=== PATIENT | female | born 1950 | race Two or more races ===

== ENCOUNTER 2024-02-04 08:17 | Inpatient (IN) | payer MEDICARE, OTHER ==
[~2024-02-04] VITALS: Ht 152.4 cm; Wt 66.4 kg
[2024-02-04] MEDS: ACETAMINOPHEN IV 1000 MG/100ML (10MG/ML) IV ONE (09:15)
[2024-02-04] MEDS: PREGABALIN CAPSULE 75 MG CAP PO ONE (09:15)
[2024-02-04] MEDS: PREGABALIN CAPSULE 75 MG CAP ONE (09:15)
[2024-02-04] MEDS: CELECOXIB 100 MG CAP ONE (09:15)
[2024-02-04] MEDS: CELECOXIB 100 MG CAP PO ONE (09:15)
[2024-02-04] MEDS: BUPIVACAINE W/ EPINEPH 0.5% INJ 50ML MDV IJ ONE (11:12)
[2024-02-04] MEDS: TRANEXAMIC ACID 20 ML ONE (11:12)
[2024-02-04] MEDS: VANCOMYCIN HCL 1000 MG VL ONE (11:31)
[2024-02-04] MEDS: TETRACAINE 1% INJ 2 ML VIAL IJ ONE (11:35)
[2024-02-04] MEDS ORDERED: fentaNYL CITRATE 100 MCG/2 ML VL ONE (11:37)
[2024-02-04] MEDS ORDERED: MIDAZOLAM HCL 2MG/2ML 2ml VIAL (1mg/ml) ONE (11:37)
[2024-02-04] MEDS ORDERED: ONDANSETRON HCL 4 MG/2 ML VIAL IV PRN (12:00)
[2024-02-04] MEDS ORDERED: MORPHINE SULFATE INJ 2 MG/ml SYRG IV PRN (12:00)
[2024-02-04] MEDS ORDERED: NITROGLYCERIN 0.4 MG SL TAB SL PRN (12:00)
[2024-02-04] MEDS ORDERED: HYDROmorphone HCL 2 MG/ML VL/or syr IV PRN ×3 (12:00→14:00)
[2024-02-04] MEDS ORDERED: ceFAZolin 1GM/50ML 50 ML IV SCH (12:00)
[2024-02-04] MEDS: KETOROLAC TROMETH 30 MG/ML 1ML VIAL ONE (12:26)
[2024-02-04] MEDS: MORPHINE SULF PF 5 MG/10 ML VIAL ONE (12:28)
[2024-02-04] MEDS: ONDANSETRON HCL 4 MG/2 ML VIAL IV ONE (13:00)
[2024-02-04 13:28] VITALS: O2SAT 100
[2024-02-04] MEDS: LACTATED RINGER'S 1,000 ML IV SCH (13:30)
[2024-02-04] MEDS ORDERED: PROPOFOL 10 MG/ML 20 ML IV ONE (13:56)
[2024-02-04] MEDS: SODIUM CHLOR 0.9% PF (SALINE LOCK) 10ML VIAL/SYR IV SCH (14:00)
[2024-02-04] MEDS: HYDROmorphone HCL 2 MG/ML VL/or syr IV PRN (14:16)
[2024-02-04] MEDS ORDERED: TOLT2CAP PO (14:22)
[2024-02-04] MEDS ORDERED: SIMV20TA20 PO (14:32)
[2024-02-04] MEDS ORDERED: PANT40TA2 PO (14:32)
[2024-02-04] MEDS ORDERED: TRIATAB3 PO (14:32)
[2024-02-04] MEDS ORDERED: ASPI1TAB20 PO (14:32)
[2024-02-04] MEDS ORDERED: DIVA250T12 PO (14:32)
[2024-02-04] MEDS ORDERED: METO25TA5 PO ×2 (14:32)
[2024-02-04] MEDS ORDERED: DILT60TA PO (14:32)
[2024-02-04] MEDS ORDERED: KETOROLAC TROMETH 30 MG/ML 1ML VIAL ONE (14:54)
[2024-02-04 17:52] VITALS: BP 144/56; PULSE 70; RESP 20; TEMP 97.6; O2SAT 95
[2024-02-04 18:00] VITALS: BP 144/56; PULSE 70; RESP 20; TEMP 97.6; O2SAT 95
[2024-02-04] MEDS: ceFAZolin 1GM/50ML 50 ML IV SCH (18:52)
[2024-02-04 20:00] VITALS: PULSE 74; RESP 17; O2SAT 94
[2024-02-04 21:16] VITALS: BP 125/50; PULSE 74; RESP 19; TEMP 97.3; O2SAT 100
[2024-02-05] VITALS (11 sets, daily range): BP systolic 92–118; BP diastolic 33–54; PULSE 89–121; RESP 17–21; TEMP 98.1–99.9; O2SAT 92–97
[2024-02-05] MEDS: HYDROcodone-ACET 5/325MG TAB PO PRN (00:15)
[2024-02-05] MEDS: DOCUSATE SOD 100 MG CAP PO SCH (00:20)
[2024-02-05 05:14] LABS: Basophils # (auto) 0 10 ^3/uL (0-0.2); Eosinophils # (auto) 0 10 ^3/uL (0-0.8); Eosinophils % (auto) 0.2 % (0.0-7.0); Monocytes # (auto) 0.8 10 ^3/uL (0-1.3); White Blood Cell 7.4 10^3/uL (4.4-10.8)
[2024-02-05 05:21] LABS: Basophils % (auto) 0.1 % (0.0-2.0); Hematocrit 20.8 % (36.0-46.0); Lymphocytes # (auto) 0.4 10 ^3/uL (0.4-5.4); Mean Corpuscular Hemoglobin 28.2 pg (28.0-32.0); Mean Corpuscular Hgb Conc. 32.5 g/dL (32.0-36.0); Mean Corpuscular Volume 86.7 fL (80.0-100.0); Monocytes % (auto) 11.1 % (0.0-12.0); Neutrophils # (auto) 6.1 10 ^3/uL (1.6-8.6); Neutrophils % (auto) 82.6 % (37.0-80.0); Red Blood Cells 2.39 10^6/uL (4.0-5.20); Red Cell Distribution Width 15.4 % (11.8-14.3)
[2024-02-05 05:32] LABS: Alkaline Phosphatase 64 U/L (46-116); Anion Gap 2 (5-15); Blood Urea Nitrogen 14 mg/dL (9-23); Calcium 8.7 mg/dL (8.7-10.4); Carbon Dioxide 31 mmol/L (20-30); Chloride 103 mmol/L (98-107); Glucose 117 mg/dL (74-106); Potassium 4.3 mmol/L (3.5-5.1); Sodium 136 mmol/L (136-145)
[2024-02-05 05:33] LABS: Albumin 2.8 g/dL (3.2-4.8); Aspartate Aminotransferase 17 U/L (13-40); Bilirubin, Total 0.4 mg/dL (0.2-1.0); Hemoglobin 6.8 g/dL (12.2-16.2); Total Protein 5.2 g/dL (5.7-8.2)
[2024-02-05 05:49] LABS: Alanine Aminotransferase 9 U/L (7-40)
[2024-02-05] MEDS ORDERED: HYDROmorphone HCL 2 MG/ML VL/or syr IV PRN (09:45)
[2024-02-05] MEDS ORDERED: ENOXAPARIN SOD 40 MG/0.4 ML SYRINGE SC SCH (10:00)
[2024-02-05 10:07] LABS: Basophils # (auto) 0 10 ^3/uL (0-0.2); Eosinophils # (auto) 0 10 ^3/uL (0-0.8); Lymphocytes # (auto) 0.3 10 ^3/uL (0.4-5.4)
[2024-02-05 10:12] LABS: Basophils % (auto) 0.2 % (0.0-2.0); Hematocrit 19.5 % (36.0-46.0); Lymphocytes % (auto) 3.3 % (10.0-50.0); Mean Corpuscular Hemoglobin 29.8 pg (28.0-32.0); Mean Corpuscular Hgb Conc. 34.5 g/dL (32.0-36.0); Mean Corpuscular Volume 86.5 fL (80.0-100.0); Monocytes % (auto) 11.2 % (0.0-12.0); Neutrophils # (auto) 7.6 10 ^3/uL (1.6-8.6); Neutrophils % (auto) 85.3 % (37.0-80.0); Red Blood Cells 2.25 10^6/uL (4.0-5.20); Red Cell Distribution Width 15.1 % (11.8-14.3); White Blood Cell 8.9 10^3/uL (4.4-10.8)
[2024-02-05 10:14] LABS: Hemoglobin 6.7 g/dL (12.2-16.2)
[2024-02-05] MEDS: IRON SUCROSE COMPLEX 100 ML IV SCH (16:23)
[2024-02-05 16:26] LABS: Hematocrit 23.8 % (36.0-46.0); Hemoglobin 7.9 g/dL (12.2-16.2)
[2024-02-05] MEDS: ACETAMINOPHEN 325 MG TAB PO PRN (23:47)
[2024-02-06] VITALS (11 sets, daily range): BP systolic 91–147; BP diastolic 44–66; PULSE 81–120; RESP 16–20; TEMP 97.6–99.3; O2SAT 91–96
[2024-02-06 06:24] LABS: Mean Corpuscular Volume 86.2 fL (80.0-100.0); White Blood Cell 7.3 10^3/uL (4.4-10.8)
[2024-02-06 06:25] LABS: Hematocrit 22.1 % (36.0-46.0); Hemoglobin 7.4 g/dL (12.2-16.2); Mean Corpuscular Hemoglobin 28.7 pg (28.0-32.0); Mean Corpuscular Hgb Conc. 33.4 g/dL (32.0-36.0); Red Blood Cells 2.57 10^6/uL (4.0-5.20); Red Cell Distribution Width 14.9 % (11.8-14.3)
[2024-02-06 06:33] LABS: Basophils % (manual) 0 (0.0-2.0); Blast Cells 0; Metamyelocytes % 0; Myelocytes % 0; Promyelocytes % 0; Reactive Lymphocytes 0
[2024-02-06 06:44] LABS: Albumin 2.9 g/dL (3.2-4.8); Alkaline Phosphatase 75 U/L (46-116); Anion Gap 2 (5-15); Aspartate Aminotransferase 22 U/L (13-40); BUN/Creatinine Ratio 28.3 (10.0-20.0); Bilirubin, Total 0.5 mg/dL (0.2-1.0); Blood Urea Nitrogen 15 mg/dL (9-23); Calcium 8.4 mg/dL (8.5-10.1); Carbon Dioxide 30 mmol/L (20-30); Chloride 105 mmol/L (98-107); Glucose 109 mg/dL (74-106); Potassium 4.3 mmol/L (3.5-5.1); Sodium 137 mmol/L (136-145)
[2024-02-06 06:45] LABS: Total Protein 5.2 g/dL (5.7-8.2)
[2024-02-06 06:49] LABS: Alanine Aminotransferase < 9 U/L (7-40)
[2024-02-06 07:52] LABS: Band Neutrophils % (manual) 14; Eosinophils % (manual) 1 (0-7); Lymphocytes % (manual) 15 (10.0-50.0); Monocytes % (manual) 9 (0-12)
[2024-02-06 07:53] LABS: Platelet Estimate Adequate
[2024-02-06] MEDS: LACTATED RINGER'S 1,000 ML IV SCH (10:13)
[2024-02-06] MEDS: IRON SUCROSE COMPLEX 100 ML IV ONE (12:13)
[2024-02-07] VITALS (8 sets, daily range): BP systolic 113–175; BP diastolic 65–90; PULSE 91–123; RESP 17–21; TEMP 97.8–109; O2SAT 90–97
[2024-02-07 06:38] LABS: Basophils # (auto) 0 10 ^3/uL (0-0.2); Basophils % (auto) 0.2 % (0.0-2.0); Eosinophils # (auto) 0.1 10 ^3/uL (0-0.8); Neutrophils # (auto) 5.1 10 ^3/uL (1.6-8.6)
[2024-02-07 06:40] LABS: Eosinophils % (auto) 1.7 % (0.0-7.0); Hematocrit 24.8 % (36.0-46.0); Hemoglobin 8.3 g/dL (12.2-16.2); Lymphocytes # (auto) 0.7 10 ^3/uL (0.4-5.4); Lymphocytes % (auto) 9.9 % (10.0-50.0); Mean Corpuscular Hemoglobin 29.2 pg (28.0-32.0); Mean Corpuscular Hgb Conc. 33.3 g/dL (32.0-36.0); Mean Corpuscular Volume 87.6 fL (80.0-100.0); Monocytes % (auto) 15.1 % (0.0-12.0); Neutrophils % (auto) 73.1 % (37.0-80.0); Red Blood Cells 2.83 10^6/uL (4.0-5.20); Red Cell Distribution Width 15.1 % (11.8-14.3); White Blood Cell 6.9 10^3/uL (4.4-10.8)
[2024-02-07 08:58] LABS: Hepatitis B Surface Antigen Negative (Negative)
[2024-02-07 09:20] LABS: Hepatitis C Antibody Negative (Negative)
[2024-02-07] MEDS: TOLTERODINE TARTRATE 1 MG TAB PO SCH (10:50)
[2024-02-07] MEDS: METOPROLOL TARTRATE 25 MG TAB PO SCH (10:50)
[2024-02-07] MEDS: ATORVASTATIN 20 MG TAB PO SCH (21:48)
[2024-02-08 01:00] VITALS: BP 169/78; PULSE 108; RESP 20; TEMP 98.2; O2SAT 91
[2024-02-08 05:00] VITALS: BP 158/73; PULSE 97; RESP 18; TEMP 97.9; O2SAT 93
[2024-02-08 05:18] LABS: Basophils # (auto) 0 10 ^3/uL (0-0.2); Basophils % (auto) 0.2 % (0.0-2.0); Eosinophils # (auto) 0.2 10 ^3/uL (0-0.8); Eosinophils % (auto) 2.5 % (0.0-7.0); Hemoglobin 8.7 g/dL (12.2-16.2); Lymphocytes # (auto) 0.7 10 ^3/uL (0.4-5.4); Lymphocytes % (auto) 10.8 % (10.0-50.0); Mean Corpuscular Hgb Conc. 33.3 g/dL (32.0-36.0); Mean Corpuscular Volume 87.2 fL (80.0-100.0); Monocytes # (auto) 0.9 10 ^3/uL (0-1.3); Monocytes % (auto) 13.5 % (0.0-12.0); Red Blood Cells 2.99 10^6/uL (4.0-5.20); Red Cell Distribution Width 15.6 % (11.8-14.3); White Blood Cell 6.8 10^3/uL (4.4-10.8)
[2024-02-08 05:33] LABS: Calcium 9.2 mg/dL (8.7-10.4); Chloride 103 mmol/L (98-107); Potassium 3.8 mmol/L (3.5-5.1); Sodium 135 mmol/L (136-145)
[2024-02-08 05:35] LABS: Anion Gap 3 (5-15); Carbon Dioxide 29 mmol/L (20-30)
[2024-02-08 05:40] LABS: Blood Urea Nitrogen 6 mg/dL (9-23); Glucose 102 mg/dL (74-106)
[2024-02-08] MEDS: hydrALAZINE HCL 20 MG/ML VL IV PRN (06:17)
[2024-02-08 07:30] VITALS: PULSE 99
[2024-02-08 09:00] VITALS: BP 156/78; PULSE 106; RESP 18; TEMP 98.1; O2SAT 93
[2024-02-08 12:45] VITALS: BP 123/67; PULSE 95; RESP 17; TEMP 98; O2SAT 92
[2024-02-08 13:07] VITALS: BP 123/67; PULSE 95; TEMP 36.7
== END 2024-02-08 13:57 | disposition home health service (06) | DRG 470 ==
LOC: SUR 08:17 → OVERFLOW 11:50 → CENTRAL 17:00 → TELE-CENTR 02-05 10:27
PROVIDERS: ADMIT Orthopaedic Surgery Adult Reconstructive Orthopaedic Surgery; ATTEND Internal Medicine
PROC: 8E0YXBZ Computer Assisted Procedure of Lower Extremity (ICD-10-PCS; 2024-02-04)
PROC: 0SR90JZ Replacement of Right Hip Joint with Synthetic Substitute, Open Approach (ICD-10-PCS; principal; 2024-02-04 11:35)
PROC: 30233N1 Transfusion of Nonautologous Red Blood Cells into Peripheral Vein, Percutaneous Approach (ICD-10-PCS; 2024-02-05)
DX: T84.090A Other mechanical complication of internal right hip prosthesis, initial encounter (principal); D62 Acute posthemorrhagic anemia; I10 Essential (primary) hypertension; E78.5 Hyperlipidemia, unspecified; M16.11 Unilateral primary osteoarthritis, right hip; G43.909 Migraine, unspecified, not intractable, without status migrainosus; Y83.8 Other surgical procedures as the cause of abnormal reaction of the patient, or of later complication, without mention of misadventure at the time of the procedure; Y92.89 Other specified places as the place of occurrence of the external cause
CPT/HCPCS: 36415; 36430; 71045; 72170; 80048; 80053; 82962; 85007; 85014; 85018; 85025; 85027; 86803; 86850; 86900; 86901; 86920; 87340; 93306; 97110; 97116; 97163; 97530; G0378; J0131; J1756; J1885; J2250; J2405; J2704